=== PATIENT | female | born 1960 | race Caucasian/White ===

== ENCOUNTER → 2018-07-27 | Outpatient (CLI) | payer BC ==
[~2018-07-27] MED LIST: CYMBALTA; LIDODERM 5%1 PATCH TOP; MOBIC15 MG; SAVELLA
== END ==
LOC: M.RAD 15:00
DX: J45.909 Unspecified asthma, uncomplicated (principal); R06.02 Shortness of breath; R05 Cough

== ENCOUNTER → 2019-01-16 | Outpatient (CLI) | payer BC | LOC: M.RAD 12:06 | DX: R05 Cough (principal) ==

== ENCOUNTER → 2019-04-29 | Outpatient (CLI) | payer BC ==
--- NOTE | 2019-04-29 13:54 | 2DMMODE ---
[place] [address] 2 D/M-MODE ECHOCARDIOGRAM Name: FAMILIA MUNOZ Room: [facility]#: [id number] Admission: 04/29/19 Attend Phys: Pennie BRITT Galvan Discharge: Date of : 60 Date of Service: 04/29/19 1354 Report #: [id number] THIS REPORT FOR: //name// APPROVED REPORT Study performed: 04/29/2019 11:13:53 EXAM: Comprehensive 2D, Doppler, and color-flow Echocardiogram Patient Location: Out-Patient BSA: 1.84 HR: 72 bpm BP: 120/89 mmHg Other Information Study Quality: Good Indications Dyspnea Hypertension/HDD 2D Dimensions IVSd: 11.05 (7-11mm) LVOT Diam: 20.07 (18-24mm) LVDd: 49.01 mm PWd: 9.96 (7-11mm) Ascending Ao: 27.33 (22-36mm) LVDs: 28.16 (25-40mm) Aortic Root: 23.88 mm Volumes Left Atrial Volume (Systole) LA ESV Index: 17.30 mL/m2 Aortic Valve AoV Peak Bernard.: 1.55 m/s AO Peak Gr.: 9.64 mmHg LVOT Max P.80 mmHg AO Mean Gr.: 4.88 mmHg LVOT Mean P.34 mmHg LVOT Max V: 1.10 m/s AO V2 VTI: 29.22 cm LVOT Mean V: 0.70 m/s SONIA (VTI): 2.77 cm2 LVOT V1 VTI: 25.60 cm Mitral Valve E/A Ratio: 1.10 MV Decel. Time: 209.27 ms MV E Max Bernard.: 0.77 m/s MV PHT: 60.69 [place] [address] 2 D/M-MODE ECHOCARDIOGRAM Name: FAMILIA MUNOZ Room: [facility]#: [id number] Admission: 04/29/19 Attend Phys: Pennie BRITT Galvan Discharge: Date of : 60 Date of Service: 04/29/19 1354 Report #: [id number] MVA (PHT): 3.63 cm2 TDI E/Lateral E': 7.00 E/Medial E': 8.56 Medial E' Bernard.: 0.09 m/s Lateral E' Bernard.: 0.11 m/s Pulmonary Valve PV Peak Bernard.: 0.85 m/s PV Peak Gr.: 2.87 mmHg Tricuspid Valve RAP Estimate: 5.00 mmHg TR Peak Gr.: 14.17 mmHg RVSP: 19.17 mmHg PA Pressure: 19.17 mmHg Left Ventricle The left ventricle is normal size. There is normal LV segmental wall motion. There is normal left ventricular wall thickness. Left ventricular systolic function is normal. The left ventricular ejection fraction is within the normal range. LVEF is 60%. The left ventricular diastolic function is normal. Right Ventricle The right ventricle is normal size. The right ventricular systolic function is normal. Atria The left atrium size is normal. The right atrium size is normal. Aortic Valve The aortic valve is normal in structure. No aortic regurgitation is present. There is no aortic valvular stenosis. Mitral Valve The mitral valve is normal in structure. Trace mitral regurgitation. No evidence of mitral valve stenosis. Tricuspid Valve The tricuspid valve is normal in structure. Trace tricuspid regurgitation. Pulmonic Valve The pulmonary valve is normal in structure. There is no pulmonic [place] [address] 2 D/M-MODE ECHOCARDIOGRAM Name: FAMILIA MUNOZ Room: [facility]#: [id number] Admission: 04/29/19 Attend Phys: Pennie BRITT Galvan Discharge: Date of : 60 Date of Service: 04/29/19 1354 Report #: [id number] Great Vessels The aortic root is normal in size. IVC is normal in size and collapses >50% with inspiration. Pericardium There is no pericardial effusion. <Conclusion> The left ventricle is normal size. There is normal left ventricular wall thickness. Left ventricular systolic function is normal. The left ventricular ejection fraction is within the normal range. LVEF is 60%. The left ventricular diastolic function is normal. The right ventricle is normal size. The left atrium size is normal. The aortic valve is normal in structure. The mitral valve is normal in structure. Trace mitral regurgitation. The tricuspid valve is normal in structure. Trace tricuspid regurgitation. IVC is normal in size and collapses >50% with inspiration. There is no pericardial effusion. There is normal LV segmental wall motion. <ELECTRONICALLY SIGNED> By: Sukumar Isabel MD, [facility] 04/29/19 1354 1354 1354 Sukumar Isabel MD, FACC /INF
--- NOTE | 2019-04-29 17:14 | CARDNUC ---
[place] [address] CARDIAC NUCLEAR IMAGING REPORT Name: FAMILIA MUNOZ Room: [facility]#: [id number] Admission: 04/29/19 Attend Phys: Pennie BRITT Galvan Discharge: Date of : 60 Date of Service: 04/29/19 1714 Report #: [id number] THIS REPORT FOR: //name// APPROVED REPORT Study performed: 04/29/2019 09:57:58 Indication: Dyspnea, Fatigue, edema Patient Location: Out-Patient Stress Tech: Jannette Schaffer Stress Nurse: Angelique Box RN Ht: 5 ft 3 in Wt: 178 lbs BSA: 1.84 m2 HR: 67 bpm BP: 126/82 mmHg BMI: 31.52 Rhythm: NSR Medical History Medications: HCTZ, Bystolic Allergies: Amlodipine, Gabapentin, Indocin, Milnacipran, Penicillin, Prednisone, Sulfa Cardiac Risk Factors: HTN, Age, FHX of CAD Resting Data Rest SPECT myocardial perfusion imaging was performed in supine position 30 minutes following the intravenous injection of 10.6 mCi of Tc-99m Sestamibi. Time of rest injection: 08:35 The images were gated to evaluate regional wall motion and calculate left ventricular ejection fraction. Administration Route: IV Administration Site: Right AC Pharmacologic Stress Pharmacologic stress test was performed by injecting Regadenoson 0.4 mg IV push over 10-15 seconds immediately followed by the intravenous injection of 34.8 mCi of Tc-99m Sestamibi. Time of stress injection: 10:00 Administration Route: IV Administration Site: Right AC Heart Rate at time of stress injection: 108 bpm. Gated Stress SPECT was performed 40 minutes after stress injection. The images were gated to evaluate regional wall motion and calculate left ventricular [place] [address] CARDIAC NUCLEAR IMAGING REPORT Name: FAMILIA MUNOZ Room: [facility]#: [id number] Admission: 04/29/19 Attend Phys: Pennie BRITT Galvan Discharge: Date of : 60 Date of Service: 04/29/19 1714 Report #: [id number] Prone imaging was performed. Stress Test Details Stress Test: Pharmacologic stress testing performed using 0.4 mg of regadenoson per 5 mL given IV over 10 seconds. HR Max Heart Rate (APMHR): 162 bpm Resting HR: 67 bpm Target HR (85% APMHR): 137 bpm Max HR Achieved: 108 bpm % of APMHR: 66 Recovery HR: 80 bpm HR response to stress: Normal HR response to stress BP Resting BP: 126/82 mmHg Max BP: 113/86 mmHg Recovery BP: 120/89 mmHg BP response to stress: Normal blood pressure response to stress. ECG Resting ECG: Sinus Rhythm Stress ECG: Sinus Rhythm ST Change: None Arrhythmia: None Recovery ECG: Sinus Rhythm Recovery ST Change: None Recovery Arrhythmia: None Clinical Reason for Termination: Completed protocol Stress Symptoms: None Exercise duration: 4 min sec The patient tolerated Lexiscan infusion without significant symptoms. Stress ECG Conclusion The baseline 12-lead EKG showed sinus rhythm without significant ST segment depression. EKGs obtained during and post Lexiscan infusion showed sinus rhythm with no significant ST segment changes when compared to baseline. There were no stress-induced arrhythmias. Study Quality Study: Good Artifact: [place] [address] CARDIAC NUCLEAR IMAGING REPORT Name: FAMILIA MUNOZ Room: [facility]#: [id number] Admission: 04/29/19 Attend Phys: Pennie BRITT Galvan Discharge: Date of : 60 Date of Service: 04/29/19 1714 Report #: [id number] Study Data At rest, the left ventricular ejection fraction was 67%.. Post stress, the left ventricular ejection was 78%.. TID = 0.94. Perfusion Normal left ventricular perfusion. Wall Motion Normal left ventricular wall motion. Nuclear Conclusion ECG Findings: negative for ischemia Clinical Findings: negative for ischemia Nuclear Findings: negative for ischemia Exercise Capacity: not assessed Left Ventricular Function: normal Risk Study: low Perfusion images show no defect to suggest infarct or ischemia. Left ventricular systolic function appears normal on gated studies. This is a low risk study. <Conclusion> The baseline 12-lead EKG showed sinus rhythm without significant ST segment depression. EKGs obtained during and post Lexiscan infusion showed sinus rhythm with no significant ST segment changes when compared to baseline. There were no stress-induced arrhythmias. <ELECTRONICALLY SIGNED> By: Nick Brooks MD, [facility] 04/29/19 1714 13 171 Nick Brooks MD, FACC /INF
== END ==
LOC: M.NUC 04-19 10:03
DX: R06.09 Other forms of dyspnea (principal); R53.83 Other fatigue; R53.1 Weakness; R60.0 Localized edema; Z82.49 Family history of ischemic heart disease and other diseases of the circulatory system; I10 Essential (primary) hypertension

== ENCOUNTER → 2021-01-26 | Outpatient (CLI) | payer OTHER | LOC: M.ULTRA 10:30 | PROVIDERS: ATTEND Registered Nurse Diabetes Educator | DX: M47.812 Spondylosis without myelopathy or radiculopathy, cervical region (principal); M43.12 Spondylolisthesis, cervical region; R42 Dizziness and giddiness; R05 Cough; M54.2 Cervicalgia; R20.2 Paresthesia of skin; G45.9 Transient cerebral ischemic attack, unspecified; I70.8 Atherosclerosis of other arteries ==

== ENCOUNTER → 2021-02-02 | Outpatient (CLI) | payer OTHER | LOC: M.ULTRA 13:49 | PROVIDERS: ATTEND Registered Nurse Diabetes Educator | DX: E04.2 Nontoxic multinodular goiter (principal); E03.9 Hypothyroidism, unspecified ==

== ENCOUNTER → 2021-02-11 | Outpatient (CLI) | payer OTHER | LOC: M.CT 02-10 15:00 | PROVIDERS: ATTEND Registered Nurse Diabetes Educator | DX: R91.8 Other nonspecific abnormal finding of lung field (principal); J45.909 Unspecified asthma, uncomplicated; I10 Essential (primary) hypertension; R60.0 Localized edema; R05 Cough; R06.02 Shortness of breath; J98.4 Other disorders of lung ==

== ENCOUNTER → 2021-03-10 | Outpatient (CLI) | payer OTHER | LOC: M.MRI 12:00 | PROVIDERS: ATTEND Registered Nurse Diabetes Educator | DX: M47.812 Spondylosis without myelopathy or radiculopathy, cervical region (principal); M54.2 Cervicalgia; M48.02 Spinal stenosis, cervical region ==

== ENCOUNTER → 2021-09-14 | Outpatient (CLI) | payer OTHER | LOC: M.MRI 09-08 11:30 | PROVIDERS: ATTEND Registered Nurse Diabetes Educator | DX: M47.816 Spondylosis without myelopathy or radiculopathy, lumbar region (principal); M47.817 Spondylosis without myelopathy or radiculopathy, lumbosacral region; M48.062 Spinal stenosis, lumbar region with neurogenic claudication; R20.0 Anesthesia of skin; R20.2 Paresthesia of skin; Z79.899 Other long term (current) drug therapy ==